=== PATIENT | female | born 1950 | race Caucasian/White ===

== ENCOUNTER 2023-12-05 16:48 | Emergency (ER) | payer MEDICARE, OTHER ==
[2023-12-05 17:50] VITALS: RESP 18; TEMP 97
--- NOTE | 2023-12-05 18:02 | ERPHSYRPT ---
- History of Present Illness Time Seen by Provider: 12/05/23 17:00 Source: patient Exam Limitations: no limitations Patient Subjective Stated Complaint: pt here for a fall today,she tripped over a stool and fell face first, no loc, pain to rleft hand and wrist, pain to nose, pain to right lower leg Triage Nursing Assessment: pt alert, walked in, resp easy, skin wq/d/p, has bruising to nose and left eye, has abrasion and skin tear. to left arm and hand, swelling and abrsions to righ lower leg, able to undress, bleeding controlled Physician History: 73-year-old female presents to our ED for evaluation status post fall. Patient tripped over furniture that was moved in her household. The fall was not associated with any neuro cardiovascular symptomology. No chest pain or shortness of breath. No nausea vomiting or diaphoresis. No numbness tingling or weakness. Patient complains of some pain around her left eye bridge of her nose left forearm left hand. Patient does have pain at her right tib-fib however patient is ambulatory and does not want an x-ray of the right tib-fib. She feels is not necessary. Patient has skin tear to her left lateral elbow. No other injuries reported. Timing/Duration: today Severity: moderate Modifying Factors: Improves With: movement Associated Symptoms: denies symptoms Allergies/Adverse Reactions: acetaminophen [From Darvocet-N] Allergy (Verified 12/05/23 17:39) propoxyphene [From Darvocet-N] Allergy (Verified 12/05/23 17:39) Home Medications: No Reportable Medications [No Reported Medications] 12/05/23 [History] Hx Tetanus, Diphtheria Vaccination/Date Given: No Hx Influenza Vaccination/Date Given: No Hx Pneumococcal Vaccination/Date Given: Yes Immunizations Up to Date: Yes Travel Risk - International Travel Have you traveled outside of the country in past 3 weeks: No - Coronavirus Screening Are you exhibiting any of the following symptoms?: No - Vaccine Status Have you recieved a Covid-19 vaccination: No - Review of Systems Constitutional: No Symptoms, No Fever, No Chills Eyes: No Symptoms Ears, Nose, & Throat: No Symptoms Respiratory: No Symptoms, No Cough, No Dyspnea Cardiac: No Symptoms, No Chest Pain, No Edema, No Syncope Abdominal/Gastrointestinal: No Symptoms, No Abdominal Pain, No Nausea, No Vomiting, No Diarrhea Genitourinary Symptoms: No Symptoms, No Dysuria Musculoskeletal: No Symptoms, No Back Pain, No Neck Pain Skin: No Symptoms, No Rash Neurological: No Symptoms, No Dizziness, No Focal Weakness, No Sensory Changes Psychological: No Symptoms Endocrine: No Symptoms Hematologic/Lymphatic: No Symptoms Immunological/Allergic: No Symptoms All Other Systems: Reviewed and Negative - Past Medical History Pertinent Past Medical History: Yes Neurological History: Peripheral Neuropathy Cardiac History: Hypertension Respiratory History: No Pertinent History Endocrine Medical History: Diabetes Type II, Hypothyroidism Musculoskeletal History: Arthritis History: Renal Disease Other Medical History: anemia - Past Surgical History Past Surgical History: Yes Gastrointestinal: Cholecystectomy Musculoskeletal: Orthopedic Surgery Female Surgical History: Hysterectomy Other Surgical History: shoulder - Social History Smoking Status: Never smoker Exposure to second hand smoke: No Drug Use: none Patient Lives Alone: No - Nursing Vital Signs Nursing Vital Signs: Initial Vital Signs Temperature 97.0 F 12/05/23 17:49 Pulse Rate 78 12/05/23 17:49 Respiratory Rate 18 12/05/23 17:49 Blood Pressure 175/85 12/05/23 17:49 O2 Sat by Pulse Oximetry 98 12/05/23 17:49 Pain Scale Pain Intensity 4 - Physical Exam General Appearance: no apparent distress, alert, other (No neck pain. Cervical spine cleared clinically.) Eye Exam: PERRL/EOMI, eyes nml inspection Ears, Nose, Throat Exam: normal ENT inspection, TMs normal, pharynx normal, moist mucous membranes, other (Tenderness to bridge of nose. Some ecchymosis just inferior to the left orbit. No acute change in vision. Extraocular movement intact. No eye pain.) Neck Exam: normal inspection, non-tender, supple, full range of motion Respiratory Exam: normal breath sounds, lungs clear, No respiratory distress Cardiovascular Exam: regular rate/rhythm, normal heart sounds, normal peripheral pulses Gastrointestinal/Abdomen Exam: soft, normal bowel sounds, No tenderness, No mass Back Exam: normal inspection, normal range of motion, No CVA tenderness, No vertebral tenderness Extremity Exam: normal inspection, normal range of motion, pelvis stable, other (Some bruising. Anterior aspect of right lower leg. However patient is ambulatory declined x-ray. All extremities are neurovascular tact distally. Compartments are soft cap refill less than 2 seconds.) Neurologic Exam: alert, oriented x 3, cooperative, normal mood/affect, sensation nml, No motor deficits Skin Exam: normal color, warm, dry, No rash Lymphatic Exam: No adenopathy SpO2 Interpretation: normal SpO2: 98 O2 Delivery: Room Air - Course Nursing assessment & vital signs reviewed: Yes - Radiology Exams Forearm X-ray Interpretation: Interpreted by me (No fracture or dislocation. Osteopenia degenerative changes observed. ) Hand X-ray Interpretation: Interpreted by me (Osteopenia degenerative changes no fractures or dislocations) - CT Exams Head CT Interpretation: Tele-radiologist Report (No comps nonacute senile brain) Maxillofacial Bones CT Interpretation: Tele-radiologist Report (No comps. Mild left infraorbital soft tissue swelling and multilevel cervical degenerative changes otherwise normal facial bones) Ordered Tests: Active Orders 24 hr Category Date Time Status FACIAL BONES WO CONTRAST [CT] Stat Exams 12/05/23 17:56 Taken FOREARM Stat Exams 12/05/23 17:57 Taken HAND (MINIMUM 3 VIEWS) Stat Exams 12/05/23 17:56 Taken HEAD WITHOUT CONTRAST [CT] Stat Exams 12/05/23 17:55 Taken Medication Summary Discontinued Medications Generic Name Dose Route Start Last Admin Trade Name Freq PRN Reason Stop Dose Admin Ibuprofen 600 mg 12/05/23 17:59 12/05/23 18:26 Ibuprofen 600 Mg Tablet PO 12/05/23 18:00 600 mg STAT ONE Administration Ibuprofen Confirm 12/05/23 18:26 Ibuprofen 600 Mg Tablet Administered 12/05/23 18:27 Dose 600 mg .ROUTE .STK-MED ONE - Progress Progress: improved Progress Note: 73-year-old female presents to our ED for evaluation status post mechanical fall. Patient tripped over furniture. Physical exam reveals some swelling under her left eye since skin tears to her left forearm. CT head negative for acute intracranial pathology. CT facial bones negative for fracture dislocations per radiologist. X-ray of the left forearm left hand or both negative for acute findings. Patient had pain to her left lower leg which she felt an x-ray was not necessary so we did not do an x-ray per her request. Patient received Tylenol for pain control. Patient reassessed. She is resting comfortably. Patient is ready for discharge. at bedside. They voiced no other complaints or concerns at this time. They agree to follow-up with primary care doctor within 48 hours for reevaluation. Portions of this note were created with voice recognition technology. There may be grammatical, spelling, punctuation or sound alike errors Complexity problem addressed is moderate acute complicated No critical care time Complex of data reviewed and analyzed is moderate. Test ordered test reviewed. Results analyzed and correlated clinically. Dr. Villa independently reviewed x- ray of the left hand and left forearm. No acute findings observed on the x- rays. Chronic findings such as osteopenia, degenerative joint changes and calcified vasculature Risk of complication and a risk morbidity/mortality of patient management is low Patient will follow-up with her primary care doctor within 48 hours for evaluation. Vital stable. Time spent to discharge patient is approximately 20 minutes. Plan of care established for shared decision making. No social determinants of health present impede follow-up. at bedside. They voiced no other complaints or concerns at this time. Portions of this note were created with voice recognition technology. There may be grammatical, spelling, punctuation or sound alike errors 12/05/23 20:45 Counseled pt/family regarding: diagnosis, need for follow-up, rad results - Departure Departure Disposition: Home Clinical Impression: Concussion, Headache, Skin tear, Hand sprain, Facial contusion, Fall Condition: Stable Critical Care Time: No Referrals: VLADIMIR PISANO DO [Primary Care Provider] - Follow up/PCP as directed Instructions: Concussion, Adult (DC) Additional Instructions: Discharge/Care Plan RAGHAVROBIN CONTRERAS was seen on 12/05/23 in the Emergency Room. The patient was counseled regarding Diagnosis,Lab results, Imaging studies, need for follow up and when to return to the Emergency Room. Prescriptions given: Discharge Note I have spoken with the patient and/or caregivers. I have explained the patient's condition, diagnosis and treatment plan based on the information available to me at this time. I have answered the patient's and/or caregiver's questions and addressed any concerns. The patient and/or caregivers have as good understanding of the patient's diagnosis, condition and treatment plan as can be expected at this point. The vital signs have been stable. The patient's condition is stable and appropriate for discharge from the emergency department. The patient will pursue further outpatient evaluation with the primary care physician or other designated or consulting physician as outlined in the discharge instructions. The patient and/or caregivers are agreeable to this plan of care and follow-up instructions have been explained in detail. The patient and/or caregivers have received these instruction. The patient/and or caregivers are aware that any significant change in condition or worsening of symptoms should prompt an immediate return to this or the closest emergency department or call 911.
[2023-12-05] MEDS: MOTRIN 600 MG PO ONE (18:26)
[2023-12-05] MEDS ORDERED: MOTRIN 600 MG ONE (18:26)
[2023-12-05 20:04] VITALS: BP 168/66; PULSE 63
[2023-12-05 20:40] VITALS: O2SAT 98
--- NOTE | 2023-12-06 08:35 | XRAY ---
Indication: Pain following fall. Left periorbital swelling/bruising. Multiple contiguous axial images obtained through the head without contrast. Comparison: None Age-appropriate global atrophy, mild periventricular degenerative micro-ischemia bilaterally, and remote lacunar infarct right basal ganglia. No acute intracranial hemorrhage, abnormal extra-axial fluid collection, or mass effect. Fourth ventricle is midline without hydrocephalus. Bony calvarium intact. Visualized paranasal sinuses and mastoid air cells are clear. Impression: Nonacute senile brain with remote lacunar infarct right basal ganglia.
--- NOTE | 2023-12-06 08:39 | XRAY ---
Indication: Pain following fall. Left periorbital swelling/bruising. Multiple contiguous axial images obtained through the facial bones. Sagittal and coronal reformatted images obtained. Comparison: None Bilateral dental amalgams produces beam artifact. Osseous structures demineralized consistent with patient's age. Mild left infraorbital soft tissue swelling. No acute fracture, suspicious bony lesions, or radiopaque foreign body. Orbits including roof, morelos, and floors intact. Paranasal sinuses and nasal passages are clear. Minimal left carotid calcifications. Remaining visualized noncontrasted soft tissues are unremarkable. Visualized cervical spine demonstrates minimal/mild multilevel degenerative changes. CT head reported separately. Impression: 1. Left infraorbital soft tissue swelling. No acute fracture. 2. Chronic findings including osteopenia, multilevel cervical generative changes, and left carotid calcifications.
--- NOTE | 2023-12-06 08:41 | XRAY ---
Indication: Pain and laceration following fall. Comparison: None 3 view left hand demonstrates osteopenia, minimal/mild degenerative changes all IP joints, mild 1st metacarpal multangular degenerative changes, radiocarpal degenerative joint space narrowing, and diffuse scattered vascular calcifications. No other bony, articular, or soft tissue abnormalities.
--- NOTE | 2023-12-06 08:41 | XRAY ---
Indication: Pain and laceration following fall. Comparison: None 2 view left forearm demonstrates osteopenia and moderate scattered vascular calcifications. Tiny subcutaneous calcification granuloma medial elbow. No other bony, articular, or soft tissue abnormalities.
== END 2023-12-05 20:49 | disposition home or self-care (01) ==
LOC: ED 16:48 → UNDOADMOB 20:24 → MED SURG 20:24 → ED 20:49
DX: S06.0X0A Concussion without loss of consciousness, initial encounter (principal); S51.812A Laceration without foreign body of left forearm, initial encounter; S63.92XA Sprain of unspecified part of left wrist and hand, initial encounter; S00.83XA Contusion of other part of head, initial encounter; W01.10XA Fall on same level from slipping, tripping and stumbling with subsequent striking against unspecified object, initial encounter; R51.9 Headache, unspecified; M79.661 Pain in right lower leg; I10 Essential (primary) hypertension; E11.42 Type 2 diabetes mellitus with diabetic polyneuropathy; Z28.310 Unvaccinated for COVID-19
CPT/HCPCS: 70450; 70486; 73090; 73130; 99283; A9270-GY

== ENCOUNTER 2025-09-10 08:48 | Day surgery (SDC) | payer MEDICARE, OTHER ==
[2025-09-10] MEDS ORDERED: methylPREDNISolone acetate IM ONE (08:49)
[2025-09-10] MEDS ORDERED: propofoL IV ONE (08:49)
[2025-09-10] MEDS ORDERED: BUPIVACAINE 0.5% VIAL IJ ONE (08:49)
--- NOTE | 2025-09-10 12:16 | XRAY ---
37 seconds of fluoroscopy was used in surgery for a bilateral sacroiliac joint injection.
--- NOTE | 2025-09-10 12:18 | XRAY ---
Indication: Bilateral SI joint injection. Intraoperative fluoroscopy provided for 37 seconds. 2 digital spot image submitted for interpretation demonstrates posterior needle tips projecting over left and right SI joints. Small amount of contrast injected for needle tip placement. Correlate with intraoperative findings/report.
== END 2025-09-10 11:10 | disposition home or self-care (01) ==
LOC: SDC-PAIN 08:48
PROVIDERS: ATTEND Psychiatry & Neurology Pain Medicine
DX: M46.1 Sacroiliitis, not elsewhere classified (principal); E11.9 Type 2 diabetes mellitus without complications